=== PATIENT | female | born 1975 | race Caucasian/White ===

== ENCOUNTER 2025-08-18 13:20 | Emergency (ER) | payer OTHER, SELFPAY ==
[2025-08-18 13:43] VITALS: BP 131/95; PULSE 87; RESP 16; TEMP 36.7; O2SAT 100
--- NOTE | 2025-08-18 15:55 | PC.NURSE ---
1335- pt decided to not be seen when she realized it wasnt a quick in and out visit and states that she didnt want to miss going to pictures of homecoming with her daughter, pt left without being seen.
== END 2025-08-18 15:55 | disposition left against medical advice (07) ==
DX: Z53.21 Procedure and treatment not carried out due to patient leaving prior to being seen by health care provider (principal)
CPT/HCPCS: 99199